=== PATIENT | female | born 1990 | race Caucasian/White ===

== ENCOUNTER 2021-06-23 22:58 | Inpatient (IN) | payer SELFPAY ==
[2021-06-23] MEDS ORDERED: Lactated Ringers 1,000 ML IV ONE (23:27)
[2021-06-23] MEDS ORDERED: Sodium Chloride 0.9% 10 ML Syringe FLUSH PRN (23:27)
[2021-06-23] MEDS ORDERED: Lidocaine 1% 30 ML SDV INJECT PRN (23:27)
[2021-06-23] MEDS ORDERED: Methylergonovine 0.2 MG/1 ML Amp IM PRN (23:27)
[2021-06-23] MEDS ORDERED: Misoprostol 400 MCG (4 X 100 MCG TAB) RECTAL PRN (23:27)
[2021-06-23] MEDS ORDERED: Ondansetron 4 MG/2 ML SDV IVPUSH PRN (23:27)
[2021-06-23] MEDS ORDERED: Carboprost Tromethamine 250 MCG/1 ML Amp IM PRN (23:27)
[2021-06-23] MEDS ORDERED: Tranexamic Acid 1,000 MG in Sodium Chloride 0.9% 100 ML IV PRN (23:27)
[2021-06-23] MEDS ORDERED: Acetaminophen 325 MG Tab PO PRN (23:27)
[2021-06-23] MEDS ORDERED: Lactated Ringers 1,000 ML IV SCH (23:30)
[2021-06-23] MEDS ORDERED: Oxytocin/Normal Saline 30 UNIT/500 ML BAG IV SCH (23:30)
[2021-06-24] MEDS ORDERED: fentaNYL 100 MCG/2 ML SDV ONE (00:34)
[2021-06-24] MEDS ORDERED: Lidocaine 1% 30 ML SDV ONE (01:11)
[2021-06-24] MEDS ORDERED: Simethicone 80 MG Tab.Chew PO PRN (01:57)
[2021-06-24] MEDS ORDERED: Acetaminophen 325 MG Tab PO PRN (01:57)
[2021-06-24] MEDS ORDERED: Oxytocin 10 Units/1 ML SDV IM PRN (01:57)
[2021-06-24] MEDS ORDERED: fentaNYL 100 MCG/2 ML SDV IVPUSH ONE (02:00)
[2021-06-24] MEDS: Benzocaine/Menthol 20%-0.5% Spray 78 GM Cannister TOP PRN ×2 (03:11→09:18)
[2021-06-24] MEDS: Ibuprofen 800 MG Tab PO PRN ×2 (03:11→20:40)
[2021-06-24] MEDS: Prenatal Multivitamin with Calcium/Folic Acid/Iron Tab PO SCH (09:18)
[2021-06-24] MEDS: Docusate Sodium 100 MG Cap PO PRN (09:18)
[2021-06-25] MEDS: Docusate Sodium 100 MG Cap PO PRN ×2 (09:49→17:15)
[2021-06-25] MEDS: Ibuprofen 800 MG Tab PO PRN ×2 (09:50→17:16)
[2021-06-25] MEDS: Prenatal Multivitamin with Calcium/Folic Acid/Iron Tab PO SCH (09:50)
[2021-06-25] MEDS ORDERED: Witch Hazel Medicated Pads 100/Jar TOP PRN (12:42)
[2021-06-25] MEDS: Ferrous Sulfate 325 MG Tab PO SCH (17:15)
[2021-06-26] MEDS: Ibuprofen 800 MG Tab PO PRN (04:39)
[2021-06-26] MEDS: Ferrous Sulfate 325 MG Tab PO SCH (11:01)
[2021-06-26] MEDS: Prenatal Multivitamin with Calcium/Folic Acid/Iron Tab PO SCH (11:01)
== END 2021-06-26 12:45 | disposition home or self-care (01) | DRG 806 ==
LOC: DL.OB 22:58 → OBSVTOIN 23:27
PROVIDERS: ADMIT Family Medicine; ATTEND Family Medicine
PROC: 10E0XZZ Delivery of Products of Conception, External Approach (ICD-10-PCS; principal; 2021-06-23)
PROC: 10907ZC Drainage of Amniotic Fluid, Therapeutic from Products of Conception, Via Natural or Artificial Opening (ICD-10-PCS; 2021-06-23)
PROC: 0W8NXZZ Division of Female Perineum, External Approach (ICD-10-PCS; 2021-06-23)
DX: O99.02 Anemia complicating childbirth (principal); D62 Acute posthemorrhagic anemia; Z37.0 Single live birth; Z3A.40 40 weeks gestation of pregnancy; Z86.16 Personal history of COVID-19
CPT/HCPCS: 36415; 85027; A9270-GY; J2590; J3010; J7120

== ENCOUNTER 2022-12-06 16:42 | Inpatient (IN) | payer BC ==
[2022-12-06] MEDS ORDERED: Methylergonovine 0.2 MG Tab PO PRN (17:05)
[2022-12-06] MEDS ORDERED: Citric Acid/Sodium Citrate Solution 30 ML Cup PO ONE (17:05)
[2022-12-06] MEDS ORDERED: Sodium Chloride 0.9% 10 ML Syringe FLUSH PRN (17:05)
[2022-12-06] MEDS ORDERED: Tranexamic Acid 1,000 MG in Sodium Chloride 0.9% 100 ML IV PRN (17:05)
[2022-12-06] MEDS ORDERED: Oxytocin 10 Units/1 ML SDV IM PRN (17:05)
[2022-12-06] MEDS ORDERED: Carboprost Tromethamine 250 MCG/1 ML Amp IM PRN (17:05)
[2022-12-06] MEDS ORDERED: Clindamycin in 0.9 % Sod Chlor 900 MG in Premix Bag 1 BAG IV ONE ×2 (17:14)
[2022-12-06] MEDS ORDERED: Oxytocin/Normal Saline 30 UNIT/500 ML BAG IV SCH (17:15)
[2022-12-06] MEDS ORDERED: Lactated Ringers 1,000 ML IV SCH ×2 (17:15→20:15)
[2022-12-06 17:37] LABS: BASOPHILS PERCENT AUTO 0.2 % (0.0-1.0); EOSINOPHILS PERCENT AUTO 0.8 % (1.0-3.0); HEMATOCRIT 38.9 % (37.0-47.0); HEMOGLOBIN 13.4 g/dL (12.0-16.0); LYMPHOCYTES PERCENT AUTO 20.8 % (20.5-50.1); MEAN CORPUSCULAR HEMOGLOBIN 30.3 pg (27.0-34.0); MEAN CORPUSCULAR HGB CONC 34.4 g/dL (33.0-35.0); MONOCYTES PERCENT AUTO 8.1 % (2-8); NEUTROPHILS PERCENT AUTO 70.1 % (42.2-75.2); PLATELET COUNT,PLT 251 10^3/uL (150-450); RED BLOOD CELL COUNT 4.42 10^6/uL (4.2-5.4); WHITE BLOOD CELL COUNT,WBC 12.4 10^3/uL (5.0-10.0)
[2022-12-06] MEDS ORDERED: Gentamicin 40 MG/ML 2 ML Vial IV ONE (18:00)
[2022-12-06] MEDS ORDERED: Oxytocin/Normal Saline 30 UNIT/500 ML BAG ONE (18:11)
[2022-12-06] MEDS ORDERED: Gentamicin 500 MG in Sodium Chloride 0.9% 100 ML IV ONE (18:15)
[2022-12-06] MEDS ORDERED: Oxytocin 10 Units/1 ML SDV ONE (18:45)
[2022-12-06] MEDS ORDERED: Dexamethasone 4 MG/ML SDV ONE (18:46)
[2022-12-06] MEDS ORDERED: Ondansetron 4 MG/2 ML SDV ONE (18:46)
[2022-12-06] MEDS ORDERED: Phenylephrine 1% 10 MG/ML SDV ONE (18:46)
[2022-12-06] MEDS ORDERED: Acetaminophen/oxyCODONE 325-5 MG Tab PO PRN (20:03)
[2022-12-06] MEDS ORDERED: Acetaminophen 325 MG Tab PO PRN (20:03)
[2022-12-06] MEDS ORDERED: Misoprostol 400 MCG (4 X 100 MCG TAB) RECTAL PRN (20:03)
[2022-12-06] MEDS ORDERED: ePHEDrine 50 MG/ML SDV IVPUSH PRN (20:03)
[2022-12-06] MEDS ORDERED: diphenhydrAMINE 50 MG/ML SDV IVPUSH PRN (20:03)
[2022-12-06] MEDS ORDERED: Methylergonovine 0.2 MG/1 ML Amp IM PRN (20:03)
[2022-12-06] MEDS ORDERED: Ondansetron 4 MG/2 ML SDV IVPUSH PRN (20:03)
[2022-12-06] MEDS ORDERED: Naloxone 2 MG/2 ML Syringe IVPUSH PRN (20:03)
[2022-12-06] MEDS: Lactated Ringers 1,000 ML IV SCH (22:00)
[2022-12-07] MEDS: Sodium Chloride 0.9% 10 ML Syringe FLUSH SCH ×3 (00:04→21:10)
[2022-12-07] MEDS: Simethicone 80 MG Tab.Chew PO SCH ×5 (00:04→21:08)
[2022-12-07] MEDS ORDERED: Ketorolac 30 MG/ML SDV IVPUSH SCH (02:00)
[2022-12-07] MEDS: Ibuprofen 800 MG Tab PO PRN ×3 (03:25→21:08)
[2022-12-07] MEDS: Lactated Ringers 1,000 ML IV SCH (06:01)
[2022-12-07] MEDS: Docusate Sodium 100 MG Cap PO PRN ×2 (09:26→21:08)
[2022-12-07] MEDS: Prenatal Multivitamin with Calcium/Folic Acid/Iron Tab PO SCH (09:26)
[2022-12-07 20:24] LABS: HEMATOCRIT 32.3 % (37.0-47.0); HEMOGLOBIN 10.7 g/dL (12.0-16.0); MEAN CORPUSCULAR HEMOGLOBIN 29.9 pg (27.0-34.0); MEAN CORPUSCULAR HGB CONC 33.1 g/dL (33.0-35.0); MEAN CORPUSCULAR VOLUME 90.2 fL (80-100); RED BLOOD CELL COUNT 3.58 10^6/uL (4.2-5.4)
[2022-12-08] MEDS: Acetaminophen/oxyCODONE 325-5 MG Tab PO PRN ×5 (01:34→19:55)
[2022-12-08] MEDS: Ibuprofen 800 MG Tab PO PRN ×2 (06:36→17:47)
[2022-12-08] MEDS: Prenatal Multivitamin with Calcium/Folic Acid/Iron Tab PO SCH (08:10)
[2022-12-08] MEDS: Simethicone 80 MG Tab.Chew PO SCH ×5 (08:10→20:15)
[2022-12-08] MEDS: Docusate Sodium 100 MG Cap PO PRN ×2 (08:17→19:55)
[2022-12-08] MEDS: Sodium Chloride 0.9% 10 ML Syringe FLUSH SCH (11:47)
[2022-12-09] MEDS: Acetaminophen/oxyCODONE 325-5 MG Tab PO PRN ×2 (01:20→07:15)
[2022-12-09] MEDS: Ibuprofen 800 MG Tab PO PRN (03:40)
[2022-12-09] MEDS: Docusate Sodium 100 MG Cap PO PRN (07:08)
[2022-12-09] MEDS: Prenatal Multivitamin with Calcium/Folic Acid/Iron Tab PO SCH (08:15)
[2022-12-09] MEDS: Simethicone 80 MG Tab.Chew PO SCH (08:16)
[2022-12-09] MEDS ORDERED: Ondansetron 4 MG/2 ML SDV IV ONE (10:14)
[2022-12-09] MEDS ORDERED: Ketorolac 30 MG/ML SDV IVPUSH ONE (10:14)
[2022-12-09] MEDS ORDERED: Morphine PF 10 MG/10 ML SDV IV ONE (10:14)
[2022-12-09] MEDS ORDERED: Phenylephrine 1% 10 MG/ML SDV IV ONE (10:14)
[2022-12-09] MEDS ORDERED: Dexamethasone 4 MG/ML SDV IV ONE (10:14)
== END 2022-12-09 10:15 | disposition home or self-care (01) | DRG 540 ==
LOC: DL.OB 16:42 → OBSVTOIN 19:24
PROVIDERS: ADMIT Family Medicine; ATTEND Family Medicine
PROC: 10D00Z1 Extraction of Products of Conception, Low, Open Approach (ICD-10-PCS; principal; 2022-12-06)
DX: O32.1XX0 Maternal care for breech presentation, not applicable or unspecified (principal); Z37.0 Single live birth; O99.824 Streptococcus B carrier state complicating childbirth; O99.02 Anemia complicating childbirth; D50.9 Iron deficiency anemia, unspecified; O99.214 Obesity complicating childbirth; Z3A.39 39 weeks gestation of pregnancy; Z91.030 Bee allergy status; Z88.8 Allergy status to other drugs, medicaments and biological substances
CPT/HCPCS: 01961; 36415; 51702; 59025; 85025; 85027; 86850; 86900; 86901; 94010; A9270-GY; J1100; J1885; J2270; J2370; J2405; J2590; J7120